=== PATIENT | female | born 1945 | race African-American/Black ===

== ENCOUNTER 2017-03-17 16:48 | Emergency (ER) | payer MEDICARE, OTHER ==
[~2017-03-17] VITALS: Ht 162.6 cm; Wt 72.6 kg
[2017-03-17] MEDS ORDERED: NKM (17:09)
[2017-03-17] MEDS ORDERED: PROMETHAZINE-D118 ML ORAL (17:41)
[2017-03-17] MEDS ORDERED: SUDAFED 12-HOU120 MG PO (17:41)
[2017-03-17] MEDS ORDERED: FLONASE ALLERG9.9 ML NS (17:41)
[2017-03-17] MEDS ORDERED: IBUPROFEN600 MG ORAL (17:41)
[2017-03-17 18:05] VITALS: BP 106/78
--- NOTE | 2017-03-17 22:29 | Emergency Room Report ---
History of Present Illness General Chief Complaint: General Complaint Source: Patient Present Illness HPI The patient is a 71-year-old female presenting for chills, subjective fever, cough, and congestion for the past week. She is also complaining of an 8/10 headache primarily to the front of her face. She admits to some mild dizziness as well. She denies other symptoms including blurred vision, neck pain or stiffness, wheezing, shortness of breath, chest pain Allergies: Coded Allergies: No Known Allergies (Unverified , 03/17/17) Patient History Past Medical History: see triage record Pertinent Family History: none Last Menstrual Period: Post Reviewed Nursing Documentation: PMH: Agreed, PSxH: Agreed Nursing Documentation-PMH Past Medical History: No Stated History Review of Systems All Other Systems: negative except mentioned in HPI Physical Exam Vital Signs Date Time Temp Pulse Resp B/P (MAP) Pulse Ox O2 Delivery O2 Flow Rate FiO2 03/17/17 17:04 98.8 100 20 113/64 98 Room Air Sp02 EP Interpretation: reviewed, normal General Appearance: no apparent distress, alert, GCS 15, non-toxic Head: normocephalic, atraumatic Eyes: bilateral eye normal inspection, bilateral eye PERRL ENT: no angioedema, normal voice, nasal congestion, other - R maxillary sinus TTP Neck: full range of motion, supple/symm/no masses Respiratory: chest non-tender, lungs clear, normal breath sounds, speaking full sentences Cardiovascular #1: regular rate, rhythm, no edema Musculoskeletal: back normal, gait/station normal, normal range of motion, non- tender, calf tenderness Neurologic: alert, oriented x3, responsive, motor strength/tone normal, sensory intact, speech normal Psychiatric: judgement/insight normal, memory normal, mood/affect normal, no suicidal/homicidal ideation Skin: normal color, no rash, warm/dry, well hydrated Lymphatic: no adenopathy Medical Decision Making PA Attestation Dr. Gunter is my supervising physician. Patient management was discussed with my supervising physician Diagnostic Impression: Primary Impression: Sinusitis Qualified Codes: J01.00 - Acute maxillary sinusitis, unspecified ER Course The patient is a 71-year-old female presenting for chills, subjective fever, cough, and congestion for the past week. Differential diagnoses considered but not limited to: Acute sinusitis, pharyngitis, rhinitis, bronchitis, AOM PE: Afebrile. NAD HEENT exam reveals tenderness to palpation over right maxillary sinus as well as nasal congestion. Otherwise unremarkable The patient discharged home with a prescription for Flonase, cough medication, Motrin, and Sudafed. ER precautions are given Last Vital Signs Date Time Temp Pulse Resp B/P (MAP) Pulse Ox O2 Delivery O2 Flow Rate FiO2 03/17/17 18:05 99.7 87 16 106/78 97 Room Air Status: improved Disposition: HOME, SELF-CARE Condition: Improved Scripts Fluticasone Propionate (Flonase Allergy Relief) 9.9 Ml [place].susp 1 SPRAYS NS DAILY, #10 ML Prov: TERZIANJOSE P.A. 03/17/17 Pseudoephedrine Hcl (SUDAFED 12-HOUR) 120 Mg Tablet.er 120 MG PO Q12HR, #30 TAB Prov: TERZIAN,JOSE P.A. 03/17/17 Ibuprofen* (MOTRIN*) 600 Mg Tablet 600 MG ORAL Q8H Y for For Pain, #30 TAB 0 Refills Prov: TERZIANJOSE P.A. 03/17/17 D-Methorphan Hb/Prometh Hcl* (PROMETHAZINE-DM SYRUP*) 118 Ml Syrup 5 ML ORAL Q6H Y for For Cough, #118 ML 0 Refills Prov: TERZIANJOSE P.A. 03/17/17 Referrals: NON PHYSICIAN (PCP) Patient Instructions: Sinusitis, Adult Additional Instructions: I discussed my findings with the patient. All questions and concerns have been answered. Treatment and medication compliance have been addressed. I advised the patient that they need to follow up with PMD in 3-5 days. Return to ED if symptoms worsen, new symptoms arise, or if needed for any reason. Patient verbalized understanding of discharge instructions. Please followup with your ear nose and throat doctor if symptoms continue JOSE BARCENAS Mar 17, 2017 22:29
== END 2017-03-17 18:05 | disposition home or self-care (01) ==
LOC: EMR 17:15
DX: J32.9 Chronic sinusitis, unspecified (principal)
CPT/HCPCS: 99283

== ENCOUNTER 2017-05-25 09:25 | Day surgery (SDC) | payer MEDICARE, OTHER ==
[~2017-05-25] VITALS: Ht 162.6 cm; Wt 75.3 kg
[2017-05-25] VITALS (9 sets, daily range): BP systolic 114–121; BP diastolic 66–78
--- NOTE | 2017-05-25 07:14 | Anethesia Preoperative Eval ---
Anesthesia Pre-op PMH/ROS General Date of Evaluation: May 25, 2017 Time of Evaluation: 07:13 Anesthesiologist: mari ASA Score: ASA 3 Mallampati Score Class I : Soft palate, uvula, fauces, pillars visible Class II: Soft palate, uvula, fauces visible Class III: Soft palate, base of uvula visible Class IV: Only hard plate visible Mallampati Classification: Class II Surgeon: iza Diagnosis: abdominal pain Surgical Procedure: egd/colonoscopy Anesthesia History: none Social History: smoking - nonsmoker Family History: no anesthesia problems Allergies: Coded Allergies: No Known Allergies (Unverified , 03/17/17) Medications: see eMAR Past Medical History Pulmonary: Reports: asthma Gastrointestinal/Genitourinary: Reports: other - renal disease Neurologic/Psychiatric: Reports: other - headache HEENT: Reports: cataract (L), cataract (R) Hematology/Immune: Reports: anemia Anesthesia Pre-op Phys. Exam Physician Exam Last Vital Signs Date Time Temp Pulse Resp B/P (MAP) Pulse Ox O2 Delivery O2 Flow Rate FiO2 05/25/17 10:12 98.2 87 20 121/68 100 Room Air 98.2 Constitutional: NAD Neurologic: CN 2-12 intact Cardiovascular: RRR Respiratory: CTA Gastrointestinal: S/NT/ND Airway Exam Mallampati Score: Class II MO: full Neck: supple TMD: 2fb ROM: full Anesthesia Pre-op A/P Risk Assessment & Plan Assessment: asa3 Plan: mac Status Change Before Surgery: No Pre-Antibiotics Drug: OVIDIO Shrestha May 25, 2017 07:14
[~2017-05-25 09:25] MED LIST: Atropine Inj 1mg/10ml Syr IV PRN; DiphenhydrAMINE 50mg/ml Inj IVP PRN; FLONASE ALLERG9.9 ML NS; IBUPROFEN600 MG ORAL; LR 1000ml 1,000 ML IVLG SCH; Midazolam 2mg/2ml Inj IVP PRN; NKM; PROMETHAZINE-D118 ML ORAL; SUDAFED 12-HOU120 MG PO; fentaNYL 100 mcg/2 mL IV PRN
--- NOTE | 2017-05-25 11:57 | Short Stay Surgery H&P ---
History of Present Illness History of Present Illness Chief Complaint Abdominal pains and screening colon HPI Loretta Chavez is a 71 year old female who was admitted on for Abdominal Pain/screening colonoscopy Patient History Allergies: Coded Allergies: No Known Allergies (Unverified , 03/17/17) PAST MEDICAL HISTORY: Past Surgeries: Social History: Medication History Scheduled Fluticasone Propionate (Flonase Allergy Relief), 1 SPRAYS NS DAILY No Known Medications* (NKM - No Known Medications*), 0 ., (Reported) Pseudoephedrine Hcl (Sudafed 12-Hour), 120 MG PO Q12HR Scheduled PRN Ibuprofen* (Motrin*), 600 MG ORAL Q8H PRN for For Pain Discontinued Medications D-Methorphan Hb/Prometh Hcl* (Promethazine-Dm Syrup*), 5 ML ORAL Q6H PRN for For Cough Discontinued Reason: Pt stopped taking med Review of Systems Cardiovascular: Reports: no symptoms Skeletal: Reports: no symptoms Gastrointestinal: Reports: other Genitourinary: Reports: no symptoms Neurologic: Reports: no symptoms Endocrine: Reports: no symptoms Hematologic: Reports: no symptoms Physical Exam Vital Signs Last Vital Signs Date Time Temp Pulse Resp B/P (MAP) Pulse Ox O2 Delivery O2 Flow Rate FiO2 05/25/17 10:12 98.2 87 20 121/68 100 Room Air 98.2 Skin: normal HENT: normal Heart: normal Lungs: normal Abdomen: normal Extremities: normal Genitourinary: normal Plan Plan of Care Upper and lower GI endoscopies. Preop Interventions None. Summary of Findings See the reports Final Diagnosis: Attestation Are the patient's medical conditions optimized for surgery? Attestation Response: yes AKIL EDMONDS May 25, 2017 11:57
--- NOTE | 2017-05-25 11:58 | Pre-Procedure Note/Attestation ---
Pre-Procedure Note/Attestation Complete Prior to Procedure Planned Procedure: left Procedure Narrative: Examiantion of the upper and the lower GI tract via endoscopy Indications for Procedure Pre-Operative Diagnosis: R/O peptic ulcer/colon polyp and CA Attestation I attest that I discussed the nature of the procedure; its benefits; risks and complications; and alternatives (and the risks and benefits of such alternatives ), prior to the procedure, with the patient (or the patient's legal cash posting representative). I attest that, if there was a reasonable possibility of needing a blood transfusion, the patient (or the patient's legal cash posting representative) was given the [facility] standardized written summary, pursuant to the Gaudencio Angie Blood Safety Act ([place] Health and Safety Code # 1645, as amended). I attest that I re-evaluated the patient just prior to the surgery and that there has been no change in the patient's H&P, except as documented below: AKIL EDMONDS May 25, 2017 11:58
--- NOTE | 2017-05-25 11:59 | Pre-Procedure Note/Attestation ---
Pre-Procedure Note/Attestation Complete Prior to Procedure Planned Procedure: left Procedure Narrative: Examination of the upper and lower GI tract via endoscopy Indications for Procedure Pre-Operative Diagnosis: R/O peptic ulcer/colon polyp and CA Attestation I attest that I discussed the nature of the procedure; its benefits; risks and complications; and alternatives (and the risks and benefits of such alternatives ), prior to the procedure, with the patient (or the patient's legal financial services sales representative). I attest that, if there was a reasonable possibility of needing a blood transfusion, the patient (or the patient's legal financial services sales representative) was given the [place] [facility] standardized written summary, pursuant to the Gaudencio Angie Blood Safety Act ([place] Health and Safety Code # 1645, as amended). I attest that I re-evaluated the patient just prior to the surgery and that there has been no change in the patient's H&P, except as documented below: AKIL EDMONDS May 25, 2017 11:59
[2017-05-25] MEDS ORDERED: Midazolam 2mg/2ml Inj ONE (12:00)
[2017-05-25] MEDS ORDERED: Propofol 200mg/20ml IV ONE (12:00)
[2017-05-25] MEDS ORDERED: LR 1000ml ONE (12:00)
[2017-05-25] MEDS ORDERED: Lidocaine 1% MPF 10mg/ml 5ml ONE (12:00)
--- NOTE | 2017-05-25 12:28 | Discharge Instructions ---
Discharge Instructions Discharge Instructions Follow up with: See the doctor after two weeks in the office. For Congestive Heart Failure Reminder Report to your physician any weight gain of 5 pounds or more in one week. AKIL EDMONDS May 25, 2017 12:28
--- NOTE | 2017-05-25 12:28 | Endoscopy Procedure Note ---
Endoscopy Procedure Note General Indication for Procedure: Abdominal pains and screeing colonoscopy. Procedures Performed: EGD - mild superficial erosion at the prepyloric area biopsied. Twisted stomach otherwise normal findings. Biopsy was also done from gastric body., colonoscopy - Minimal internal hemorrohids otherwise normal study upto the base of the cecum. Poor colon prep. Pt Tolerated Procedure Well: Yes Estimated Blood Loss: none Anesthesia Anesthesiologist: Dr. Calhoun. Anesthesia: moderate sedation Medications Medication Given: see anesthesia record Inserted Devices Implant(s) used?: No Quality Quality of Bowel Preparation: Poor Did scope reach the cecum?: Yes Was there any complications?: No GI Core Measures 50 yrs or older w/o bx or poly: Yes 10yrs. F/U not recommended: Yes 10 yrs. F/U needed: Yes 18 years or older w/prev. colo: No Med reason:<3 yrs.: System Reason:<3 yrs.: AKIL EDMONDS May 25, 2017 12:28
--- NOTE | 2017-05-25 12:48 | Immediate Post-Op Evaluation ---
Immediate Post-Op Evalulation Immediate Post-Op Evalulation Procedure: egd/colonoscopy Date of Evaluation: May 25, 2017 Time of Evaluation: 12:43 IV Fluids: 650ml Blood Products: none Estimated Blood Loss: negligible Blood Pressure Systolic: 115 Blood Pressure Diastolic: 72 Pulse Rate: 78 Respiratory Rate: 18 O2 Sat by Pulse Oximetry: 100 Temperature (Fahrenheit): 97.7 Pain Score (1-10): 0 Nausea: No Vomiting: No Complications none Patient Status: awake, reacts, patent Hydration Status: adequate Drug: OVIDIO Shrestha May 25, 2017 12:48
--- NOTE | 2017-05-25 12:50 | 48 Hour Post Anesthesia Eval ---
Post Anesthesia Evaluation Procedure: egd/colonoscopy Date of Evaluation: May 25, 2017 Time of Evaluation: 12:45 Blood Pressure Systolic: 114 0: 72 Pulse Rate: 68 Respiratory Rate: 18 Temperature (Fahrenheit): 97.7 O2 Sat by Pulse Oximetry: 100 Airway: patent Nausea: No Vomiting: No Pain Intensity: 0 Hydration Status: adequate Cardiopulmonary Status: stable Mental Status/LOC: patient returned to baseline Post-Anesthesia Complications: none Follow-up care needed: N/A OVIDIO YI May 25, 2017 12:50
--- NOTE | 2017-05-25 20:00 | Procedure Note ---
DATE OF PROCEDURE: 05/25/2017 SURGEON: Huang Patel M.D. REFERRING PHYSICIAN: Hyacinth Ralph M.D. PROCEDURE: Total colonoscopy. PREOPERATIVE DIAGNOSIS: Screening colonoscopy. POSTOPERATIVE DIAGNOSES: 1. Minimal internal hemorrhoids, otherwise completely normal total colonoscopy. 2. Poor colonic preparation. MEDICATION USED: Per Dr. Calhoun, anesthesiologist. INSTRUMENT: GIF Olympus video colonoscope. DESCRIPTION OF PROCEDURE: The patient after arriving endoscopy unit, was told about risks and benefits of the procedure, which she accepted and signed informed consent. At this time, she was put on the left lateral decubitus position. After adequate IV sedation, the scope was gently passed through the anal area and a retroflexion maneuver, which was applied revealed evidence of minimal internal hemorrhoids, which were not friable. At this time, the rest of the rectum examined, which was completely normal and no abnormal findings were seen. At this point, the scope was passed through rather redundant left descending colon and gradually reaching to the splenic flexure. The colon cleanup was poor and there was significant amount of liquidy stool along the colon making the examination difficult and as such the presence of diminutive polypoid lesions could not be ruled out though there was no any gross pathology such as a pedunculated polyps, tumors, or stricture etc found in the total colonoscopy. Gradually the scope was passed through the transverse colon reaching to hepatic flexure, guided into the right colon, all the way to the base of the cecum. All these areas were also found to be completely normal. At this time, within 7 minutes, the scope was gradually pulled out and re-evaluation of the colon did not reveal any other abnormalities. The patient tolerated the procedure well and left the endoscopy room in a good condition. Huang Patel M.D. DR: ROOSEVELT JOB#: [id number] CC: Hyacinth Ralph M.D.; Fax#: [phone] [facility]
--- NOTE | 2017-05-25 21:45 | Procedure Note ---
DATE OF PROCEDURE: 05/25/2017 PROCEDURE: Esophagogastroduodenoscopy with biopsy. SURGEON: Huang Patel M.D. REFERRING PHYSICIAN: Hyacinth Ralph M.D. PREOPERATIVE DIAGNOSIS: Abdominal pain. POSTOPERATIVE DIAGNOSES: 1. Minimal superficial erosions in the prepyloric area at 2 o'clock, biopsied. 2. Twisted stomach and the biopsy was taken from gastric body as well per random. MEDICATION USED: Per Dr. Calhoun, anesthesiologist. INSTRUMENT: GIF Olympus upper GI video endoscope. DESCRIPTION OF PROCEDURE: The patient after arriving at endoscopy unit, was told about risks and benefits of the procedure, which she accepted and signed informed consent. She was then put on the left lateral decubitus position. After adequate IV sedation, the scope was gently passed through the cricopharyngeal area, was lodged into the upper esophagus, and gradually advanced towards gastroesophageal junction. The entire length of the esophagus looked normal and there was no evidence of any inflammatory process, ulceration, varices, tumors, etc. GE junction also looked normal. Upon entering the scope into the stomach, it was found that the gastric cavity was twisted and after endoscopic straightening of the stomach the gastric cavity was extended and the scope was now passed through the whole body of the stomach reaching towards the pylorus. There was normal finding in the gastric mucosa over the upper body of the stomach, however, upon entering into the antral area, particularly at the level of 2 o'clock prepyloric section, there was edema and minimal superficial erosions, which was not friable and it was biopsied however. At this time, one random biopsy from gastric body was also obtained and subsequently the scope was passed through the pylorus. First and second portion of duodenum were found to be completely normal. At this time, the scope was pulled out and the procedure was terminated. The patient tolerated the procedure well. Huang Patel M.D. DR: ROOSEVELT JOB#: [id number] CC: Hyacinth Ralph M.D.; Fax#: [phone] [facility]
== END 2017-05-25 14:10 | disposition home or self-care (01) ==
LOC: GAS 09:25
DX: Z12.11 Encounter for screening for malignant neoplasm of colon (principal); K64.8 Other hemorrhoids; K25.9 Gastric ulcer, unspecified as acute or chronic, without hemorrhage or perforation; N18.9 Chronic kidney disease, unspecified; K29.50 Unspecified chronic gastritis without bleeding; K31.9 Disease of stomach and duodenum, unspecified
CPT/HCPCS: 43239; G0121; J2250; J2704; J7120; 94003; 94150

== ENCOUNTER 2020-01-07 13:06 | Outpatient (CLI) | payer MEDICARE, OTHER ==
[~2020-01-07] VITALS: Ht 162.6 cm; Wt 71.2 kg
[~2020-01-07 13:06] MED LIST changes: -Atropine Inj 1mg/10ml Syr IV PRN; -DiphenhydrAMINE 50mg/ml Inj IVP PRN; -LR 1000ml 1,000 ML IVLG SCH; -Midazolam 2mg/2ml Inj IVP PRN; -fentaNYL 100 mcg/2 mL IV PRN
[2020-01-07 13:45] VITALS: BP 114/62
--- NOTE | 2020-01-07 14:45 | Consultation ---
DATE OF CONSULTATION: 01/07/2020 CONSULTING PHYSICIAN: Idris Salmeron MD. REFERRING PHYSICIAN: Huang Patel MD. CHIEF COMPLAINT: Referral for pancreatic cyst. HISTORY OF PRESENT ILLNESS: The patient at this time is a 74-year-old female without any significant medical problems. Denies any abdominal pain. She had an abdominal MRI done, which showed evidence of a 6 mm cyst versus focal tortuosity in the neck of the pancreas. So, the patient was referred for endoscopic ultrasound. PAST MEDICAL HISTORY: None. PAST SURGICAL HISTORY: None. MEDICATIONS: Probiotics. FAMILY HISTORY: Brother had colon cancer. SOCIAL HISTORY: The patient denies any tobacco, alcohol, or drug use. ALLERGIES: No known drug allergies. REVIEW OF SYSTEMS: A 10-point review of systems was performed and negative except for mild diffuse abdominal pain. PHYSICAL EXAMINATION: VITAL SIGNS: Temperature 97.1, blood pressure is 114/62, pulse 60, respirations 20. Height is 5 feet 4 inches, weight is 157. HEENT: Normocephalic, atraumatic. Sclerae anicteric. NECK: Supple. No evidence of obvious lymphadenopathy. CARDIOVASCULAR: Regular rate and rhythm. Plus S1 and S2. LUNGS: Clear to auscultation bilaterally. ABDOMEN: Positive bowel sounds. Soft and nontender. No rebound. No guarding. No peritoneal sign. EXTREMITIES: No cyanosis, no clubbing, no edema. ASSESSMENT AND PLAN: This is a 74-year-old female with pancreatic cyst, has diffuse abdominal pain. We will plan to perform an endoscopic ultrasound for evaluation of pancreatic cyst. The risks and benefits of the procedure was explained to the patient. We will go ahead and schedule for that. I want to thank Dr. Huang Patel, for this kind referral. Idris Salmeron M.D. DR: CHEVY JOB#: [id number] CC: Huang Patel MD.; Fax#: [phone]
== END 2020-01-07 15:06 | disposition home or self-care (01) ==
LOC: PAN 13:06
DX: R10.9 Unspecified abdominal pain (principal); K86.2 Cyst of pancreas
CPT/HCPCS: G0463

== ENCOUNTER 2020-02-18 12:53 | Outpatient (CLI) | payer MEDICARE, OTHER ==
[2020-02-18 13:03] VITALS: BP 123/68
--- NOTE | 2020-02-18 13:31 | General Progress Note ---
Subjective ROS Limited/Unobtainable: Yes Allergies: Coded Allergies: No Known Allergies (Unverified , 03/17/17) Objective Last 24 Hour Vital Signs Date Time Temp Pulse Resp B/P (MAP) Pulse Ox O2 Delivery O2 Flow Rate FiO2 02/18/20 13:03 97.0 79 14 123/68 100 General Appearance: alert EENT: normal ENT inspection Neck: supple Cardiovascular: normal rate Respiratory/Chest: lungs clear Abdomen: normal bowel sounds, non tender, soft Extremities: non-tender Assessment/Plan Assessment/Plan: gastritis>>> on ppi panc cyst>>> s/p EUS>>> plan repeat MRI in one year Idris Salmeron MD Feb 18, 2020 13:31
== END 2020-02-18 14:53 | disposition home or self-care (01) ==
LOC: PAN 12:53
DX: K29.70 Gastritis, unspecified, without bleeding (principal); K86.2 Cyst of pancreas
CPT/HCPCS: 99212